=== PATIENT | female | born 1950 | race Caucasian/White ===

== ENCOUNTER 2016-12-04 09:55 | Outpatient (CLI) ==
[2014-08-29 13:25] VITALS: BMI 30.7
--- NOTE | 2016-12-04 10:47 | DEXA ---
EXAM: Bone densitometry. History: Osteoporosis. Findings: Evaluation of the lumbar spine reveals a total bone mineral density of 1.050 grams per centimeter sq uared with T-score of negative 1.1. Evaluation of the left hip reveals a total bone mineral density of 0.754 grams per centimeter square d with T-score of negative 2.0. Evaluation of the right hip reveals a total bone mineral density of 0.720 grams per centimeter squar ed with T-score of negative 2.3 Impression: Osteopenia of the lumbar spine and bilateral hips.
== END 2016-12-04 09:56 | disposition home or self-care (01) ==
LOC: RAD 09:55
PROVIDERS: ATTEND Internal Medicine
DX: M81.0 Age-related osteoporosis without current pathological fracture (principal)

== ENCOUNTER 2017-10-07 07:39 | Emergency (ER) | payer OTHER ==
[2017-10-07 07:48] VITALS: TEMP 99.2; BMI 30.9
[2017-10-07] MEDS ORDERED: AFRIN NASAL SPRAY NAS STA (10:12)
[2017-10-07] MEDS ORDERED: AFRIN NASAL SPRAY NAS ONE (10:15)
--- NOTE | 2017-10-07 10:28 | ED.PDOC ---
General ED Provider: Dr. ENIO DEGROOT Chief Complaint: Nosebleed Stated Complaint: nosebleed Time Seen by Physician: 08:00 (bilateral slow bleeding seen with nurse at all times ) Mode of Arrival: Walk-In Information Source: Patient Exam Limitations: No limitations Primary Care Provider: WISAM DEAN Nursing and Triage Documentation Reviewed and Agree: Yes (no trauma no air way issues except for some minor bleeding) Reviewed sepsis parameters & appropriate labs ordered?: Yes System Inflammatory Response Syndrome: Not Applicable Sepsis Protocol: For patient's 13 years and over: Temp is 96.8 and below OR 101 and greater Pulse >90 BPM Resp >20/minute Acutely Altered Mental Status Are patient's symptoms suggestive of a new infection, such as: -Pneumonia -Skin, Soft Tissue -Endocarditis -UTI -Bone, Joint Infection -Implantable Device -Acute Abdominal Infection -Wound Infection -Meningitis -Blood Stream Catheter Infection -Unknown System Inflammatory Response Syndrome: Not Applicable Review of Systems - Review Of Systems Constitutional: Reports: No symptoms Eyes: Reports: No symptoms Ears, Nose, Mouth, Throat: Reports: Epistaxis Respiratory: Reports: No symptoms Cardiac: Reports: No symptoms GI: Reports: No symptoms : Reports: No symptoms Musculoskeletal: Reports: No symptoms Skin: Reports: No symptoms Neurological: Reports: No symptoms Endocrine: Reports: No symptoms Hematologic/Lymphatic: Reports: No symptoms All Other Systems: Reviewed and Negative Past Medical History - Past Medical History Previously Healthy: Yes Endocrine: Reports: None Cardiovascular: Reports: None Respiratory: Reports: None Hematological: Reports: None Gastrointestinal: Reports: None Genitourinary: Reports: None Neuro/Psych: Reports: Anxiety Musculoskeletal: Reports: None Cancer: Reports: None Last Menstrual Period: n/a - Surgical History General Surgical History: Reports: None - Family History Family History: Reports: None - Social History Smoking Status: Former smoker Hx Substance Use: Yes (MARJUANA DAILY) Alcohol Screening: Occasionally Physical Exam - Physical Exam Appearance: Well-appearing, No pain distress, Well-nourished Eyes: SUSAN, EOMI, Conjunctiva clear ENT: Epistaxis (bilateral anterior slow ) Respiratory: Airway patent, Breath sounds clear, Breath sounds equal, Respirations nonlabored Cardiovascular: RRR, Pulses normal, No rub, No murmur GI/: Soft, Nontender, No masses, Bowel sounds normal, No Organomegaly Musculoskeletal: Normal strength, ROM intact, No edema, No calf tenderness Skin: Warm, Dry, Normal color Neurological: Sensation intact, Motor intact, Reflexes intact, Cranial nerves intact, Alert, Oriented Psychiatric: Affect appropriate, Mood appropriate Procedures - Nasal Packing/Cautery Indications: Present: Anterior epistaxis Packing/Cautery Procedure: Bilateral Suction Used: No Pressure Used to Control Bleeding: No (stopped spontanously) Medications Used: Yes: Afrin Hemostasis Obtained: Yes Physician Notification - Case Discussed Physician Notified: twyla KNOWLES Time of Notification: 10:28 (ANDREA KNOWLES REQUESTED ANT PACK AND B/P CONTROL IF BLEEDING STILL AN ISUE THEN SEE HIM) Critical Care Note - Critical Care Note Total Time (mins): 0 Course - Course Hematology/Chemistry: 10/07/17 08:17 Orders, Labs, Meds: Lab Review 10/07/17 10/07/17 08:17 08:17 WBC 5.48 RBC 3.85 L Hgb 12.3 Hct 35.7 L MCV 92.7 MCH 31.9 H MCHC 34.5 RDW Coeff of Wilfredo 12.9 Plt Count 249 Immature Gran % (Auto) 0.2 Neut % (Auto) 52.4 Lymph % (Auto) 37.6 [place] % (Auto) 8.2 Eos % (Auto) 0.7 Baso % (Auto) 0.9 Immature Gran # (Auto) 0.0 Neut # (Auto) 2.9 Lymph # (Auto) 2.1 [place] # (Auto) 0.5 Eos # (Auto) 0.0 Baso # (Auto) 0.1 PT 9.3 INR 0.93 APTT 25.5 Orders Category Date Time Status CBC W/ AUTO DIFF Stat LAB 10/07/17 08:17 Completed PARTIAL THROMBOPLASTIN TIME Stat LAB 10/07/17 08:17 Completed PT WITH INR Stat LAB 10/07/17 08:17 Completed Oxymetazoline HCl [Afrin Nasal [place]] MEDS 10/07/17 10:15 Discontinued 1 spray MANDY .STK-MED ONE Oxymetazoline HCl [Afrin Nasal [place]] MEDS 10/07/17 10:12 Stat 2 spray MANDY ONCE STA Medications Discontinued Medications Generic Name Dose Route Start Last Admin Trade Name Freq PRN Reason Stop Dose Admin Oxymetazoline HCl 2 spray 10/07/17 10:12 Afrin Nasal [place] MANDY 10/07/17 10:13 ONCE STA Vital Signs: Temp Pulse Resp BP Pulse Ox 10/07/17 07:45 99.2 F 108 H 20 161/97 H 99 Departure - Departure Time of Disposition: 11:00 Disposition: HOME SELF-CARE Discharge Problem: Anterior epistaxis Instructions: Nosebleed (ED) Condition: Good Pt referred to PMD for follow-up: Yes IPMP verified?: No Additional Instructions: Please call your Family Physician as soon as possible to schedule a follow-up appointment.FOLLOW UP WITH YOUR MD AND RETURN IN AM FOR NASAL PACKING REMOVAL Allergies/Adverse Reactions: Allergies No Known Allergies Allergy (Verified 10/07/17 07:48) Home Medications: Ambulatory Orders Oxybutynin Chloride 5 mg PO DAILY 12/21/14 Duloxetine HCl [Cymbalta] 60 mg PO DAILY 10/07/17 Levocetirizine Dihydrochloride [Xyzal] 5 mg PO BID 10/07/17 Montelukast Sodium [Singulair] 10 mg PO BEDTIME 10/07/17 Tramadol HCl 50 mg PO BID 10/07/17 Disposition Discussed With: Patient
[2017-10-07 11:49] VITALS: BP 140/88
== END 2017-10-07 12:35 | disposition short-term general hospital (02) ==
LOC: ED 07:39
DX: R04.0 Epistaxis (principal); R03.0 Elevated blood-pressure reading, without diagnosis of hypertension
CPT/HCPCS: 36415; 85025; 85610; 85730; 99285

== ENCOUNTER 2017-10-11 07:42 | Outpatient (CLI) | END 2017-10-11 07:43 | disposition short-term general hospital (02) | LOC: AMBL 07:42 | PROVIDERS: ATTEND Internal Medicine | DX: R04.2 Hemoptysis (principal) ==

== ENCOUNTER 2018-09-09 09:04 | Outpatient (CLI) ==
--- NOTE | 2018-09-10 08:51 | MAMMO ---
EXAM: Bilateral digital screening mammogram (2-D and 3-D) History: Screening Comparison: Bilateral mammogram 11/26/2014 Findings: MLO and CC views of bilateral breasts demonstrate predominately fatty replaced breast pare nchyma. CAD was reviewed by the radiologist. Tomosynthesis was performed. There are no dominant ma sses, no suspicious microcalcifications and no architectural distortions Impression: Stable negative mammogram. Recommend followup routine screening mammography in 1 year. BIRADS 1, negative
== END 2018-09-09 09:05 | disposition home or self-care (01) ==
LOC: RAD 09:04
PROVIDERS: ATTEND Internal Medicine
DX: Z12.31 Encounter for screening mammogram for malignant neoplasm of breast (principal)